=== PATIENT | female | born 2000 | race Caucasian/White ===

== ENCOUNTER 2024-07-26 14:54 | Emergency (ER) | payer OTHER ==
[~2024-07-26 14:54] MED LIST: CLARITIN-D 12 H1 TAB PO; PREDNISONE10 MG PO; ROBITUSSIN DM 105 ML PO
== END 2024-07-26 16:01 | disposition home or self-care (01) ==
LOC: ED 14:54
DX: S61.011A Laceration without foreign body of right thumb without damage to nail, initial encounter (principal); Z79.899 Other long term (current) drug therapy; Z90.49 Acquired absence of other specified parts of digestive tract; Z90.89 Acquired absence of other organs; W26.8XXA Contact with other sharp object(s), not elsewhere classified, initial encounter; Y93.89 Activity, other specified; Y92.89 Other specified places as the place of occurrence of the external cause; Y99.8 Other external cause status

== ENCOUNTER → 2024-07-30 | Outpatient (CLI) | payer OTHER | END | disposition home or self-care (01) | LOC: WOUNDCARE 00:50 | PROVIDERS: ATTEND Nurse Practitioner Family | DX: S61.011A Laceration without foreign body of right thumb without damage to nail, initial encounter (principal); I95.1 Orthostatic hypotension; M35.2 Behcet's disease; Z90.49 Acquired absence of other specified parts of digestive tract; Z90.89 Acquired absence of other organs; Z79.899 Other long term (current) drug therapy; W26.8XXA Contact with other sharp object(s), not elsewhere classified, initial encounter; Y93.89 Activity, other specified; Y92.89 Other specified places as the place of occurrence of the external cause; Y99.8 Other external cause status ==

== ENCOUNTER → 2024-08-07 | Outpatient (CLI) | payer OTHER | END | disposition home or self-care (01) | LOC: WOUNDCARE 02:29 | PROVIDERS: ATTEND Nurse Practitioner Family | DX: S61.011D Laceration without foreign body of right thumb without damage to nail, subsequent encounter (principal); Z90.49 Acquired absence of other specified parts of digestive tract; W26.8XXD Contact with other sharp object(s), not elsewhere classified, subsequent encounter ==